=== PATIENT | female | born 2000 | race Caucasian/White ===

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

== ENCOUNTER 2019-09-29 09:12 | Emergency (ER) | payer MEDICAID ==
[~2019-09-29] VITALS: Ht 152.4 cm; Wt 61.2 kg
[~2019-09-29 09:12] MED LIST: FLUO10CA24 PO
[2019-09-29 09:17] VITALS: BP 132/74
--- NOTE | 2019-09-29 09:48 | NUR ---
DR SALMON AT BEDSIDE
--- NOTE | 2019-09-29 09:49 | NUR ---
C/O CONSTIPATION X 3 DAYS ACOMPANIED BY MENSTRUAL CRAMPS AND HEAVIER MENSTRUAL BLEEDING. 9/10 PAIN. BOWEL SOUNDS ACTIVE IN ALL 4 QUADRANTS. ABDOMEN SOFT AND FLAT, TENDER TO TOUCH IN LOWER QUADRANTS. PT STATES SHE HAS NOT TAKEN ANY STOOL SOFTNERS OR OTC MEDICATIONS. VS STABLE. PT ALERT AND AWAKE, AMBULATORY WITH STEADY GAIT. HX: CONSTIPATION RX: NONE
[2019-09-29] MEDS ORDERED: DICYCLOMINE HCL LIQUID 10 MG/5 ML UDC PO ONE (09:50)
[2019-09-29] MEDS ORDERED: MAGNESIUM CITRATE 300 ML BTL PO ONE (09:50)
--- NOTE | 2019-09-29 09:50 | NUR ---
LAST BM 3 DAYS AGO
--- NOTE | 2019-09-29 10:03 | NUR ---
PT WANTS TO HOLD ON THE TEST/MEDICATION UNTIL APPROVAL FOR MEDICAL
--- NOTE | 2019-09-29 10:10 | NUR ---
PT STATED SHE IS OKAY WITH RECEIVING TREATMENT NOW, CALLED LAB AND XRAY TO NOTIFY
--- NOTE | 2019-09-29 10:16 | NUR ---
CALLED PHARMACY FOR MAG CITRATE, WILL BRING OVER NOW
--- NOTE | 2019-09-29 10:25 | NUR ---
PT TAKEN OFF THE UNIT VIA WHEEL CHAIR FOR CXR
[2019-09-29 10:48] LABS: BASOPHILS % (AUTO) 0.4 % (0.0-2.0); EOSINOPHILS # (AUTO) 0.1 K/uL (0-0.4); EOSINOPHILS % (AUTO) 1.2 % (0.0-4.0); HEMATOCRIT 43.7 % (36-48); HEMOGLOBIN 14.5 g/dL (12.0-16.0); LYMPHOCYTES # (AUTO) 1.9 K/uL (2.5-16.5); LYMPHOCYTES % (AUTO) 26.8 % (20.5-51.1); MEAN CORPUSCULAR HEMOGLOBIN 30 pg (27-31); MEAN CORPUSCULAR HGB CONC 33 g/dL (33-37); MEAN CORPUSCULAR VOLUME 89.4 fL (80-94); MONOCYTES # (AUTO) 0.5 K/uL (0.8-1.0); MONOCYTES % (AUTO) 6.3 % (1.7-9.3); NEUTROPHILS # (AUTO) 4.7 K/uL (1.8-7.7); NEUTROPHILS % (AUTO) 65.3 % (42.2-75.2); PLATELET COUNT (AUTO) 262 K/uL (140-450); RED BLOOD CELL COUNT(AUTO) 4.88 MIL/uL (4.20-5.40); RED CELL DISTRIBUTION WIDTH 13.5 % (11.6-13.7); WHITE BLOOD COUNT (AUTO) 7.2 K/uL (4.5-11.0)
[2019-09-29 10:50] LABS: ANION GAP 15.2 (8-16); CARBON DIOXIDE 25.8 mmol/L (21-32); CREATININE 0.7 mg/dL (0.6-1.3)
[2019-09-29 10:53] LABS: APPEARANCE,URINE SL CLOUDY (CLEAR); BILIRUBIN,URINE 1+ (NEGATIVE); BLOOD, URINE 3+ (NEGATIVE); LEUKOCYTE ESTERASE ,URINE NEGATIVE (NEGATIVE); NITRITE, URINE NEGATIVE (NEGATIVE); UGLUCOSE NEGATIVE (NEGATIVE)
[2019-09-29 10:54] LABS: ALBUMIN 4.3 g/dL (3.4-5.0); TOTAL BILIRUBIN 0.4 mg/dL (0.0-1.0)
[2019-09-29 11:03] LABS: COLOR,URINE SLIGHT BLOODY (YELLOW); RBC,URINE TOO NUMEROUS TO COUN /HPF (0-5); WBC,URINE 0-5 /HPF (0-5)
[2019-09-29 11:15] VITALS: BP 115/81
== END 2019-09-29 11:15 | disposition home or self-care (01) ==
LOC: MED 09:19
DX: K59.00 Constipation, unspecified (principal); Z79.899 Other long term (current) drug therapy
CPT/HCPCS: 36415; 74022; 80053; 81001; 81025; 85025; 99284

== ENCOUNTER 2020-04-15 14:38 | Emergency (ER) | payer MEDICAID ==
[~2020-04-15] VITALS: Ht 154.9 cm; Wt 60.3 kg
[2020-04-15 14:40] VITALS: BP 122/87
--- NOTE | 2020-04-15 14:49 | NUR ---
Patient ambulated to bed 12. RN evaluating patient at bedside.
--- NOTE | 2020-04-15 15:05 | NUR ---
19 Y/O FEMALE FROM HOME C/O VAGINAL BLEEDING THAT STARTED THIS MORNING. PT STATES MID BACK PAIN YESTERDAY, NONE TODAY. STATES BLOOD IS LIGHT PINK AND WATERY. CONTROLLED BLEEDING AT THIS TIME. DENIES ABD PAIN. APPROX 8 WKS . POSITIONED FOR COMFORT. VSS. LMP 02/10/20 MEDHX: DENIES
--- NOTE | 2020-04-15 15:07 | NUR ---
LAB AT BEDSIDE FOR BLOOD DRAW
[2020-04-15 15:20] LABS: BASOPHILS % (AUTO) 0.3 % (0.0-2.0); EOSINOPHILS # (AUTO) 0.1 K/uL (0-0.4); EOSINOPHILS % (AUTO) 0.5 % (0.0-4.0); HEMATOCRIT 39.6 % (36-48); HEMOGLOBIN 13.1 g/dL (12.0-16.0); LYMPHOCYTES # (AUTO) 2.5 K/uL (2.5-16.5); LYMPHOCYTES % (AUTO) 22.3 % (20.5-51.1); MEAN CORPUSCULAR HEMOGLOBIN 30 pg (27-31); MEAN CORPUSCULAR HGB CONC 33 g/dL (33-37); MEAN CORPUSCULAR VOLUME 90.3 fL (80-94); MONOCYTES # (AUTO) 0.7 K/uL (0.8-1.0); MONOCYTES % (AUTO) 5.9 % (1.7-9.3); PLATELET COUNT (AUTO) 288 K/uL (140-450); RED BLOOD CELL COUNT(AUTO) 4.38 MIL/uL (4.20-5.40); RED CELL DISTRIBUTION WIDTH 12.9 % (11.6-13.7); WHITE BLOOD COUNT (AUTO) 11.3 K/uL (4.5-11.0)
[2020-04-15 15:27] LABS: APPEARANCE,URINE CLEAR (CLEAR); BILIRUBIN,URINE NEGATIVE (NEGATIVE); BLOOD, URINE 1+ (NEGATIVE); COLOR,URINE YELLOW (YELLOW); LEUKOCYTE ESTERASE ,URINE TRACE (NEGATIVE); NITRITE, URINE NEGATIVE (NEGATIVE); UGLUCOSE NEGATIVE (NEGATIVE)
[2020-04-15 15:48] LABS: RBC,URINE 11-20 (MOD) /HPF (0-5)
[2020-04-15 16:31] VITALS: BP 122/87
--- NOTE | 2020-04-15 16:32 | NUR ---
Patient discharged with v/s stable. Written and verbal after care instructions given and explained. Patient verbalized understanding. Ambulatory with steady gait. All questions addressed prior to discharge. Advised to follow up with PMD.
== END 2020-04-15 16:32 | disposition home or self-care (01) ==
LOC: MED 14:38
DX: O20.0 Threatened abortion (principal); O46.91 Antepartum hemorrhage, unspecified, first trimester; Z3A.08 8 weeks gestation of pregnancy; Z79.899 Other long term (current) drug therapy
CPT/HCPCS: 36415; 76817; 81001; 84702; 85025; 86900; 86901; 87086; 99284; Q0092

== ENCOUNTER 2020-04-22 18:15 | Emergency (ER) | payer MEDICAID ==
[~2020-04-22] VITALS: Ht 154.9 cm; Wt 61.2 kg
[2020-04-22 18:20] VITALS: BP 124/66
[2020-04-22 19:31] VITALS: BP 124/66
[2020-04-22 19:33] LABS: APPEARANCE,URINE CLEAR (CLEAR); COLOR,URINE YELLOW (YELLOW)
[2020-04-22 19:34] LABS: BILIRUBIN,URINE NEGATIVE (NEGATIVE); LEUKOCYTE ESTERASE ,URINE NEGATIVE (NEGATIVE); NITRITE, URINE NEGATIVE (NEGATIVE); UGLUCOSE NEGATIVE (NEGATIVE)
[2020-04-22 19:35] LABS: BLOOD, URINE 1+ (NEGATIVE)
[2020-04-22 19:36] LABS: RBC,URINE 0-5 /HPF (0-5); WBC,URINE 0-5 /HPF (0-5)
== END 2020-04-22 20:48 | disposition home or self-care (01) ==
LOC: MED 18:15
DX: O26.851 Spotting complicating pregnancy, first trimester (principal); O20.8 Other hemorrhage in early pregnancy; Z3A.01 Less than 8 weeks gestation of pregnancy; Z79.899 Other long term (current) drug therapy
CPT/HCPCS: 36415; 76801; 81001; 84702; 99284; Q0092; 81025

== ENCOUNTER 2020-06-23 06:55 | Emergency (ER) | payer MEDICAID, OTHER ==
[~2020-06-23] VITALS: Ht 154.9 cm; Wt 63.5 kg
[2020-06-23 07:02] VITALS: BP 133/76
[2020-06-23] MEDS ORDERED: DOPPLER MC ONE (07:22)
[2020-06-23 07:50] VITALS: BP 106/67
== END 2020-06-23 07:50 | disposition home or self-care (01) ==
LOC: MED 06:55
DX: O23.42 Unspecified infection of urinary tract in pregnancy, second trimester (principal); Z3A.16 16 weeks gestation of pregnancy
CPT/HCPCS: 81002; 81025; 87086; 99283

== ENCOUNTER 2020-07-10 12:35 | Observation (INO) | payer OTHER ==
[~2020-07-10] VITALS: Ht 152.4 cm; Wt 65.8 kg
[2020-07-10] MEDS ORDERED: PNV1TABL5 PO (13:05)
[2020-07-10] MEDS ORDERED: FERR325E14 PO (13:05)
[2020-07-10 13:30] VITALS: BP 117/64
[2020-07-10 14:16] LABS: BASOPHILS % (AUTO) 0.2 % (0.0-2.0); EOSINOPHILS # (AUTO) 0.1 K/uL (0-0.4); HEMATOCRIT 32.5 % (36-48); HEMOGLOBIN 11.3 g/dL (12.0-16.0); LYMPHOCYTES % (AUTO) 19.5 % (20.5-51.1); MEAN CORPUSCULAR HEMOGLOBIN 33 pg (27-31); MEAN CORPUSCULAR HGB CONC 35 g/dL (33-37); MEAN CORPUSCULAR VOLUME 93.6 fL (80-94); MONOCYTES # (AUTO) 0.7 K/uL (0.8-1.0); MONOCYTES % (AUTO) 6.8 % (1.7-9.3); NEUTROPHILS # (AUTO) 7.6 K/uL (1.8-7.7); NEUTROPHILS % (AUTO) 72.5 % (42.2-75.2); PLATELET COUNT (AUTO) 261 K/uL (140-450); RED BLOOD CELL COUNT(AUTO) 3.48 MIL/uL (4.20-5.40); RED CELL DISTRIBUTION WIDTH 13.4 % (11.6-13.7); WHITE BLOOD COUNT (AUTO) 10.5 K/uL (4.5-11.0)
[2020-07-10 14:30] LABS: APPEARANCE,URINE CLOUDY (CLEAR); BILIRUBIN,URINE NEGATIVE (NEGATIVE); BLOOD, URINE 3+ (NEGATIVE); COLOR,URINE YELLOW (YELLOW); LEUKOCYTE ESTERASE ,URINE NEGATIVE (NEGATIVE); NITRITE, URINE NEGATIVE (NEGATIVE); UGLUCOSE NEGATIVE (NEGATIVE)
[2020-07-10] MEDS ORDERED: MORPHINE SULFATE 10 MG/ML VIAL IVP PRN ×2 (14:30→17:30)
[2020-07-10] MEDS ORDERED: MORPHINE SULFATE 10 MG/ML VIAL ONE (14:31)
[2020-07-10 14:43] LABS: RBC,URINE >100 /HPF (0-5); WBC,URINE 0-5 /HPF (0-5)
[2020-07-10] MEDS ORDERED: PROMETHAZINE 25 MG/ML VIAL IVP PRN ×2 (16:20→19:20)
[2020-07-11 01:26] VITALS: BP 107/61
== END 2020-07-11 08:20 | disposition home or self-care (01) ==
LOC: MLD 12:35 → MFCC 16:43
PROVIDERS: ADMIT Obstetrics & Gynecology; ATTEND Obstetrics & Gynecology
DX: O20.0 Threatened abortion (principal); Z20.828 Contact with and (suspected) exposure to other viral communicable diseases; O62.9 Abnormality of forces of labor, unspecified; Z87.59 Personal history of other complications of pregnancy, childbirth and the puerperium; Z87.440 Personal history of urinary (tract) infections; Z3A.21 21 weeks gestation of pregnancy
CPT/HCPCS: 36415; 59025; 76805; 76817; 81001; 85025; 86886; 86900; 86901; 87426; 96374; 96375; 96376; G0378; J2270; J2550; J7120; Q0092

== ENCOUNTER 2024-05-20 19:46 | Emergency (ER) | payer OTHER ==
[~2024-05-20] VITALS: Ht 154.9 cm; Wt 74.8 kg
[~2024-05-20 19:46] MED LIST changes: +FERR325E14 PO; -FLUO10CA24 PO; +PNV1TABL5 PO; +[UNRECOGNIZED DRUG - CODE] PO
[2024-05-20 20:20] VITALS: BP 132/78; PULSE 70; RESP 16; TEMP 98.2; O2SAT 97
[2024-05-20] MEDS ORDERED: IBUP-2213 PO (21:56)
== END 2024-05-20 22:03 | disposition home or self-care (01) ==
LOC: MED 19:46
DX: S52.502A Unspecified fracture of the lower end of left radius, initial encounter for closed fracture (principal); R03.0 Elevated blood-pressure reading, without diagnosis of hypertension; Z79.899 Other long term (current) drug therapy; W22.8XXA Striking against or struck by other objects, initial encounter; Y93.66 Activity, soccer; Y92.322 Soccer field as the place of occurrence of the external cause; Y99.8 Other external cause status
CPT/HCPCS: 73110; 81025; 99283